=== PATIENT | male | born 2000 ===

== ENCOUNTER 2021-12-29 13:57 | Emergency (ER) | payer OTHER, BC ==
[2021-12-29 14:28] LABS: #Basophils 0.1 10x3/uL (0.0-0.2); #Eosinphils 0.1 10x3/uL (0.0-0.5); #Monocytes 0.6 10x3/uL (0.0-1.1); #Neutrophils 6.1 10x3/uL (1.5-8.4); %Basophils 0.7 % (0.0-2.0); %Eosinophils 1.2 % (0.0-6.0); %Lymphocytes 23.1 % (18.0-47.0); %Monocytes 6.2 % (0.0-10.0); %Neutrophils 67.3 % (40.0-75.0); Hemoglobin 14.6 g/dL (13.5-17.5); Mean Corpuscular HGB CONC 34.4 g/dL (32.0-36.0); Mean Corpuscular Hemoglobin 29.8 pg (27.0-33.0); Mean Corpuscular Volume 86.5 fl (81.2-95.1); Mean Platelet Volume 11.3 fl (7.4-10.4); Platelet Count 204 10x3/uL (150-450); RBC Distribution Width 11.4 % (11.5-14.5); White Blood Cell (WBC) Count 9.1 10x3/uL (3.5-10.5)
[2021-12-29 14:38] LABS: ALT (SGPT) 16 U/L (8-55); AST (SGOT) 23 U/L (5-34); Albumin 4.8 g/dL (3.5-5.0); Alkaline Phosphatase 71 U/L (40-110); Anion Gap 13 mmol/L (10-20); BUN (Urea Nitrogen) 12 mg/dL (8.9-20.6); Bilirubin, Total 0.5 mg/dL (0.2-1.2); Calc. Creatinine Clearance 0 mL/min (70-130); Calcium 9.8 mg/dL (7.8-10.44); Carbon Dioxide 28 mmol/L (22-29); Chloride 104 mmol/L (98-107); Estimated GFR 113; Globulin 3.1 g/dL (2.4-3.5); Glucose 97 mg/dL (70-105); Potassium 4.7 mmol/L (3.5-5.1); Protein, Total 7.9 g/dL (6.0-8.3); Sodium 140 mmol/L (136-145)
== END 2021-12-29 17:02 | disposition home or self-care (01) ==
LOC: CSHERS 13:57
DX: S10.91XA Abrasion of unspecified part of neck, initial encounter (principal); S30.810A Abrasion of lower back and pelvis, initial encounter; R07.89 Other chest pain; G89.11 Acute pain due to trauma; V49.50XA Passenger injured in collision with unspecified motor vehicles in traffic accident, initial encounter
CPT/HCPCS: 36415; 71045; 72170; 80053; 85025